=== PATIENT | male | born 1975 | race Caucasian/White ===

== ENCOUNTER 2017-10-28 04:37 | Emergency (ER) | payer SELFPAY ==
[~2017-10-28] VITALS: Ht 185.4 cm; Wt 81.6 kg
[2017-10-28] MEDS ORDERED: VENTOLIN HFA18 GM INH (04:48)
[2017-10-28 04:52] VITALS: BP 128/74
[2017-10-28] MEDS ORDERED: Dexamethasone 4mg/ml vial ORAL ONE (05:00)
[2017-10-28] MEDS ORDERED: HYDROCODON-ACE1 EA15 ORAL (05:04)
[2017-10-28] MEDS ORDERED: AUGMENTIN 875-1 EAC1 ORAL (05:04)
--- NOTE | 2017-10-28 05:05 | Emergency Room Report ---
History of Present Illness General Chief Complaint: Sore Throat Source: Patient Present Illness HPI This is a 42-year-old male who presents with chief complaint of sore throat. Onset for about 5 days now. No fever chills. Pain is 8 out of 10. Worse with swallowing. Ibuprofen is not helping. Denies any cough or congestion. Denies any drooling. He said he gets this problem every year. Afraid of antibiotics because he said Cipro "messed him up." Allergies: Coded Allergies: CIPROFLOXACIN (Verified Allergy, Unknown, 10/28/17) LEVOFLOXACIN (Verified Allergy, Unknown, 10/28/17) SULFA (SULFONAMIDE ANTIBIOTICS) (Verified Allergy, Unknown, 10/28/17) Patient History Past Medical History: see triage record, old chart reviewed Past Surgical History: none Pertinent Family History: none Social History: Denies: drug use Immunizations: other Reviewed Nursing Documentation: PMH: Agreed; PSxH: Agreed Nursing Documentation-PMH Past Medical History: No History, Except For Hx Asthma: Yes Review of Systems Eye: Denies: eye pain, blurred vision ENT: Reports: throat pain, throat swelling; Denies: ear pain, nose congestion Respiratory: Denies: cough, shortness of breath Cardiovascular: Denies: chest pain, palpitations Gastrointestinal: Denies: abdominal pain, diarrhea, nausea, vomiting Musculoskeletal: Denies: back pain, joint pain Skin: Denies: rash Neurological: Denies: headache, numbness Endocrine: Denies: increased thirst, increased urine Hematologic/Lymphatic: Denies: easy bruising All Other Systems: negative except mentioned in HPI Physical Exam Vital Signs Date Time Temp Pulse Resp B/P (MAP) Pulse Ox O2 Delivery O2 Flow Rate FiO2 10/28/17 04:45 98.3 92 16 128/74 96 Room Air 98.2 vitals normal Sp02 EP Interpretation: reviewed, normal General Appearance: well appearing, no apparent distress, alert Head: normocephalic, atraumatic Eyes: bilateral eye PERRL, bilateral eye EOMI ENT: hearing grossly normal, tonsillar swelling, pharyngeal erythema, tonsillar exudate, other - right peritonsillar abscess Neck: full range of motion, supple, no meningismus Respiratory: chest non-tender, lungs clear, normal breath sounds Cardiovascular #1: regular rate, rhythm, no murmur Gastrointestinal: normal bowel sounds, non tender, no mass, no organomegaly, no bruit, non-distended Musculoskeletal: back normal, gait/station normal, normal range of motion Psychiatric: mood/affect normal Skin: warm/dry Medical Decision Making Diagnostic Impression: Primary Impression: Peritonsillar abscess ER Course Patient presents with early peritonsillar abscess. No drooling or trismus. Patient said that he can take penicillin-based antibiotics. Dose of steroids given here. We'll discharge home. We'll refer her to ENT. Told patient if not better in one to 2 days or worsen significantly, need to come back. Last Vital Signs Date Time Temp Pulse Resp B/P (MAP) Pulse Ox O2 Delivery O2 Flow Rate FiO2 10/28/17 04:52 98.2 92 16 128/74 96 Room Air 98.2 Status: unchanged Disposition: HOME, SELF-CARE Condition: Stable Scripts Hydrocodone/Acetaminophen 5-325* (HYDROCODONE/ACETAMINOPHEN 5-325*) 1 Each Tablet 1 TAB ORAL Q6H PRN for For Pain, #20 TAB 0 Refills Prov: RAYMOND ROSE M.D. 10/28/17 Amoxicillin/Potassium Clav 875-125* (AUGMENTIN 875-125 TABLET*) 1 Each Tablet 1 TAB ORAL TWICE A DAY, #14 TAB Prov: RAYMOND ROSE M.D. 10/28/17 Patient Instructions: Tonsillitis Additional Instructions: Follow-up with your doctor in 2-3 days. Return if symptom worsen. RAYMOND ROSE M.D. Oct 28, 2017 05:05
[2017-10-28] MEDS ORDERED: PENICILLIN V P500 MG PO (05:13)
[2017-10-28 05:19] VITALS: BP 128/74
== END 2017-10-28 05:19 | disposition home or self-care (01) ==
LOC: EMR 05:19
DX: J36 Peritonsillar abscess (principal); J45.909 Unspecified asthma, uncomplicated; Z88.1 Allergy status to other antibiotic agents; Z88.2 Allergy status to sulfonamides
CPT/HCPCS: 99284; J1100